=== PATIENT | female | born 1980 | race Caucasian/White ===

== ENCOUNTER 2016-12-30 09:32 | Emergency (ER) | payer OTHER ==
[2016-12-30 09:47] VITALS: BP 121/70; PULSE 66; TEMP 98.1; BMI 31.6
[2016-12-30] MEDS ORDERED: ACETAMINOPHEN 500 MG TABLET (FP) ONE (10:11)
[2016-12-30] MEDS ORDERED: ACETAMINOPHEN 500 MG TABLET (FP) PO ONE (10:13)
--- NOTE | 2016-12-30 10:20 | PDOC ---
History of Present Illness - General Chief Complaint: Pain Stated Complaint: RT FOOT PAIN Time Seen by Provider: 12/30/16 10:04 History Source: Patient Exam Limitations: No Limitations - History of Present Illness Initial Comments: 12/30/16 10:18 Chief complaint: Right middle toe pain after hitting it in a table last night History of present illness: Patient is a 36-year-old female with no significant medical history here today complaining of pain in right middle toe with slight swelling of the toe noted after hitting it on a table last night. Patient reports the pain is sharp when she applies pressure to her right toe and is an 8 out of 10. Patient denies any numbness of toe or any other injuries. Patient has not taken anything for pain. 12/30/16 10:20 Occurred: reports: yesterday Severity: Yes: severe (when applying pressure to rt. foot) Lower Extremity Pain Location: right: 3rd toe (middle aspect ) Method of Injury: Yes: direct blow (to a table ) Modifying Factors: improves with: immobilization Lower Ext. Injury Location - Specific Injury Location Foot: right foot normal range of motion, right foot bone tenderness (rt. middle toe ), right foot limited range of motion (rt. middle toe), right foot swelling (minimal swelling rt. middle toe) Extremity Pain Location - Extremity Pain Location Extremity Pain Locations: right: 3rd toe (middle aspect ) Past History - Past Medical History Allergies/Adverse Reactions: Allergies Allergy/AdvReac Type Severity Reaction Status Date / Time No Known Allergies Allergy Verified 12/30/16 09:49 Home Medications: Ambulatory Orders No Home Medications 0 dose .ROUTE UTDICT 04/17/12 Other medical history: Pt denies - Psycho/Social/Smoking Cessation Hx Suicidal Ideation: No Smoking Status: Yes Smoking History: Never smoked Have you smoked in the past 12 months: No Number of Cigarettes Smoked Daily: 3 Information on smoking cessation initiated: No Hx Alcohol Use: No Drug/Substance Use Hx: No Substance Use Type: None Hx Substance Use Treatment: No Review of Systems - Review of Systems Able to Perform ROS?: Yes Constitutional: No: Symptoms Reported HEENTM: No: Symptoms Reported Respiratory: No: Symptoms reported Cardiac (ROS): No: Symptoms Reported ABD/GI: No: Symptoms Reported : No: Symptoms Reported Musculoskeletal: Yes: Joint Pain (rt. middle toe), Joint Swelling (rt. middle toe, mid aspect ) Integumentary: No: Symptoms Reported Neurological: No: Symptoms reported *Physical Exam - Vital Signs Last Vital Signs Temp Pulse Resp BP Pulse Ox 98.1 F 66 14 121/70 96 12/30/16 09:42 12/30/16 09:42 12/30/16 09:42 12/30/16 09:42 12/30/16 09:42 - Physical Exam General Appearance: Yes: Appropriately Dressed Respiratory/Chest: positive: Lungs Clear, Normal Breath Sounds. negative: Chest Tender, Respiratory Distress Cardiovascular: positive: Regular Rhythm, Regular Rate, S1, S2 Vascular Pulses: Dorsalis-Pedis (R): 4+ Extremity: positive: Normal Capillary Refill, Tender (rt. middle toe), Swelling (minimal rt. middle toe). negative: Normal Range of Motion (slightly decreased ROM rt. middle toe) Integumentary: positive: Normal Color, Swelling (minimal rt. middle toe) Neurologic: positive: Normal Response, Respond to painful stimul (rt. foot and all toes ), Responsive. negative: Numbness, Sensory Deficit (rt. foot/toes ) Procedures - Consent Consent obtained: From Patient - Splinting Progress: 12/30/16 10:57 Tapped right second and third toe together and post op shoe given to patient ED Treatment Course - RADIOLOGY Radiology Studies Ordered: Category Date Time Status FOOT-RIGHT [RAD] Stat Radiology 12/30/16 10:13 Ordered Medical Decision Making - Medical Decision Making 12/30/16 10:20 Patient is a 36-year-old female with no significant medical history here today complaining of pain in right middle toe with slight swelling of the toe noted after hitting it on a table last night. Patient reports the pain is sharp when she applies pressure to her right toe and is an 8 out of 10. Patient denies any numbness of toe or any other injuries. Patient has not taken anything for pain. R/O fracture rt. 3rd toe PLAN: xray right foot rt. proximal 3rd toe fracture buddie taped 2nd & 3rd toe, post op shoe acetaminophen 1000 mg po now follow up with orthopedist 12/30/16 10:53 12/30/16 10:57 *DC/Admit/Observation/Transfer Diagnosis at time of Disposition: Fracture of toe of right foot Qualifiers: Encounter type: initial encounter Toe: lesser toe Fracture type: closed Phalanx : proximal Fracture alignment: displaced Qualified Code(s): S92.511A - Displaced fracture of proximal phalanx of right lesser toe(s), initial encounter for closed fracture - Discharge Dispostion Disposition: HOME Condition at time of disposition: Stable - Referrals Referrals: Jesus Santos [Primary Care Provider] - Shiva Medina MD [Staff Physician] - - Patient Instructions Additional Instructions: Continue to tape right 2nd and 3rd toe together daily use hard sole shoe Take acetaminophen as needed as directed by improvement coordinator for pain Avoid Any strenuous activities Follow up with orthopedist as soon as possible
== END 2016-12-30 11:19 | disposition home or self-care (01) ==
LOC: JERFT 09:32
DX: S92.511A Displaced fracture of proximal phalanx of right lesser toe(s), initial encounter for closed fracture (principal); W22.03XA Walked into furniture, initial encounter; Y93.01 Activity, walking, marching and hiking; Y92.89 Other specified places as the place of occurrence of the external cause; Y99.8 Other external cause status
CPT/HCPCS: 73630-TC-RT; 84703; 99281-25

== ENCOUNTER 2017-02-28 11:13 | Emergency (ER) | payer OTHER ==
[2017-02-28 11:27] VITALS: BMI 32.4
--- NOTE | 2017-02-28 12:42 | PDOC ---
History of Present Illness - General History Source: Patient Exam Limitations: No Limitations - History of Present Illness Initial Comments: 02/28/17 13:17 The patient is a 36 year old female, who is currently 6 week with no significant past medical history who presents to the emergency department with right sided abdominal pain, and nausea for about 5 days. The patient reports her pain is episodic in nature often ranging from dull to sharp. She reports her pain is a 8/10 in pain intensity at its worst. She notes her pain has been gradually worsening and becoming more frequent since its original episodic. She denies seeing an OBGYN since discovering she was . She denies recent fevers, chills, headache or dizziness. She denies recent vomiting, diarrhea or constipation. She denies recent dysuria, frequency, urgency or hematuria. She denies recent chest pain or shortness of breath. LMP was December,. Allergies: NKA Past surgical history: None reported. Social history: Nonsmoker. Denies EtOH use and recreational drug use. Primary Care Physician: <Chris Skaggs - Last Filed: 02/28/17 13:17> <Alex Pritchett - Last Filed: 02/28/17 16:30> - General Chief Complaint: Pain, Acute Stated Complaint: RT SIDE PAIN, 6 WKS Time Seen by Provider: 02/28/17 11:38 Past History <Chris Skaggs - Last Filed: 02/28/17 13:17> - Past Medical History Other medical history: denies - Immunization History Immunization Up to Date: Yes - Psycho/Social/Smoking Cessation Hx Suicidal Ideation: No Smoking Status: Yes Smoking History: Never smoked Have you smoked in the past 12 months: No Number of Cigarettes Smoked Daily: 3 Information on smoking cessation initiated: No Hx Alcohol Use: No Drug/Substance Use Hx: No Substance Use Type: None Hx Substance Use Treatment: No <Alex Pritchett - Last Filed: 02/28/17 16:30> - Past Medical History Allergies/Adverse Reactions: Allergies Allergy/AdvReac Type Severity Reaction Status Date / Time No Known Allergies Allergy Verified 02/28/17 11:24 Home Medications: Ambulatory Orders No Home Medications 0 dose .ROUTE UTDICT 04/17/12 Review of Systems - Review of Systems Constitutional: No: Chills, Fever Respiratory: No: Cough, Shortness of Breath Cardiac (ROS): No: Chest Pain ABD/GI: Yes: Nausea. No: Constipated, Diarrhea, Vomiting : No: Burning, Flank Pain, Hematuria, Incontinence All Other Systems: Reviewed and Negative <Alex Pritchett - Last Filed: 02/28/17 16:30> *Physical Exam - Vital Signs Last Vital Signs Temp Pulse Resp BP Pulse Ox 98.4 F 71 17 141/95 98 02/28/17 11:24 02/28/17 11:24 02/28/17 11:24 02/28/17 11:24 02/28/17 11:24 - Physical Exam Comments: 02/28/17 13:17 GENERAL: The patient is awake, alert, and fully oriented, in no acute distress. HEAD: Normal with no signs of trauma. EYES: Pupils equal, round and reactive to light, extraocular movements intact, sclera anicteric, conjunctiva clear with no pallor. ENT: Ears normal, nares patent, oropharynx clear without exudates. Moist mucous membranes. NECK: Normal range of motion, supple without lymphadenopathy, JVD, or masses. LUNGS: Breath sounds equal, clear to auscultation bilaterally. No wheeze/ crackles. HEART: Regular rate and rhythm, normal S1 and S2 without murmur or rub. ABDOMEN: Right pelvic discomfort. Soft/nondistended. BS wnl. No guarding or rebound. No palpable masses. No hepatosplenomegaly. EXTREMITIES: Normal range of motion, no edema. No clubbing or cyanosis. No cords , erythema, or tenderness. NEUROLOGICAL: Cranial nerves II through XII grossly intact. Normal speech, normal gait. PSYCH: Normal mood, normal affect. SKIN: Warm, Dry, normal turgor, no rashes or lesions noted. <Chris Skaggs - Last Filed: 02/28/17 13:17> - Vital Signs Last Vital Signs Temp Pulse Resp BP Pulse Ox 98.4 F 71 17 141/95 98 02/28/17 11:24 02/28/17 11:24 02/28/17 11:24 02/28/17 11:24 02/28/17 11:24 <Alex Pritchett - Last Filed: 02/28/17 16:30> ED Treatment Course - LABORATORY CBC & Chemistry Diagram: 02/28/17 12:07 02/28/17 12:07 - ADDITIONAL ORDERS Additional order review: 02/28/17 12:07 RBC 4.56 MCV 87.5 MCHC 33.9 RDW 13.7 MPV 8.2 Neutrophils % 73.9 Lymphocytes % 17.3 Monocytes % 7.5 Eosinophils % 0.8 Basophils % 0.5 <Chris Skaggs - Last Filed: 02/28/17 13:17> - LABORATORY CBC & Chemistry Diagram: 02/28/17 12:07 02/28/17 12:07 <Alex Pritchett - Last Filed: 02/28/17 16:30> Medical Decision Making - Medical Decision Making 02/28/17 13:24 A portion of this note was documented by scribe services under my direction. I have reviewed the details of the note, within reason, and agree with the documentation with the following case summary and management plan written by me. Healthy 36-year-old female LMP 01/17 presents with intermittent right lower abdominal/pelvic discomfort for 5 days, increasing in frequency and lasting only seconds at a time, worse severity as 8 out of 10, no worsening or alleviating factors, no associated GI or complaints, no discharge or bleeding. Has not yet had OB care established. Brought her daughter to fast track today and while here decided to get checked out. Vital signs stable. Well-appearing. abd soft/nd. discomfort in R pelvis, no guarding/rebound. no cvat. no active vaginal bleeding. 36y/o F with R pelvic discomfort, known + test at home. VSS, no peritoneal findings. r/o ectopic, r/o cyst, ? uti, less likely GI. labs, ua TVUS and RUQ sono declines pain meds at this time reassess 02/28/17 16:27 labs wnl, ua clear. GB and u/s wnl with normal IUP, 3x3cm R ovarian cyst otherwise uncomplicated with normal flow. Pt comfortable, seated in chair, pain resolved, exam unchanged and benign. Agrees with d/c plan, will establish ob care, understands return criteria. <Alex Pritchett - Last Filed: 02/28/17 16:30> *DC/Admit/Observation/Transfer - Attestations Scribe Attestion: 02/28/17 13:17 Documentation prepared by Chris Skaggs, acting as medical recruiter for Alex Pritchett MD. <Chris Skaggs - Last Filed: 02/28/17 13:17> <Alex Pritchett - Last Filed: 02/28/17 16:30> Diagnosis at time of Disposition: Pelvic pain in female, Cyst of ovary Qualifiers: Weeks of gestation: less than 8 weeks Qualified Code(s): Z3A.01 - Less than 8 weeks gestation of - Discharge Dispostion Disposition: HOME Condition at time of disposition: Improved - Referrals Referrals: Jesus Santos [Primary Care Provider] - - Patient Instructions Printed Discharge Instructions: DI for Ovarian Cyst, Nausea of ( Alternative Therapy) Additional Instructions: Activity as tolerated. Stay hydrated. Blood tests, a urine test, and an ultrasound showed no acute abnormalities. There is a normal first trimester in the uterus, there is a small 3 cm cyst on the right ovary which could be the cause of your pain. Tylenol 1000 mg every 8 hours as needed for pain. You should follow up with your [facility] as soon as possible regarding today's emergency department visit. Return to the emergency department for any new or concerning symptoms, particularly persistent or worsening pain, fevers or chills, vaginal discharge or bleeding.
[2017-02-28 13:06] LABS: BASOPHIL 0.5 % (0-2.0); EOSINOPHIL 0.8 % (0-4.5); MCH 29.7 pg (25.7-33.7); MCHC 33.9 g/dl (32.0-36.0); MEAN CELL VOLUME 87.5 fl (80-96); MEAN PLT VOLUME 8.2 fl (7.5-11.1); NEUTROPHILS 73.9 % (42.8-82.8); PLATELET COUNT 248 K/MM3 (134-434); RDW 13.7 % (11.6-15.6)
[2017-02-28 13:31] LABS: ALBUMIN 3.8 g/dl (3.4-5.0); ANION GAP 8 (8-16); CALCIUM 9.1 mg/dL (8.5-10.1); CO2 25 mmol/L (21-32); CREATININE 0.6 mg/dL (0.55-1.02); GLUCOSE,RANDOM 86 mg/dL (74-106); SGOT/AST 15 U/L (15-37); SGPT/ALT 26 U/L (12-78)
[2017-02-28 13:33] LABS: ALK PHOS 63 U/L (45-117); BILIRUBIN,TOTAL 0.3 mg/dL (0.2-1.0); TOT PROT 7.4 g/dl (6.4-8.2)
[2017-02-28 14:04] LABS: URINE APPEARANCE SLCLOUDY; URINE BILIRUBIN NEGATIVE (NEGATIVE); URINE BLOOD NEGATIVE (NEGATIVE); URINE COLOR YELLOW; URINE GLUCOSE (UA) NEGATIVE (NEGATIVE); URINE KETONE NEGATIVE (NEGATIVE); URINE LEUK ESTERASE NEGATIVE (NEGATIVE); URINE NITRITE NEGATIVE (NEGATIVE); URINE PROTEIN NEGATIVE (NEGATIVE); URINE UROBILINOGEN NEGATIVE mg/dL (0.2-1.0)
[2017-02-28 15:17] VITALS: BP 137/71; PULSE 83; TEMP 99.1
== END 2017-02-28 16:57 | disposition home or self-care (01) ==
LOC: JER 11:13
DX: O34.81 Maternal care for other abnormalities of pelvic organs, first trimester (principal); N83.291 Other ovarian cyst, right side; Z3A.01 Less than 8 weeks gestation of pregnancy
CPT/HCPCS: 36415; 76705-TC; 76817-TC; 80053; 81003; 84702; 85025; 86850; 86900; 86901; 99284-25

== ENCOUNTER 2017-07-15 06:35 | Inpatient (IN) | payer OTHER ==
[2017-07-15 08:06] VITALS: TEMP 98.2
[2017-07-15 09:06] LABS: MCH 30.3 pg (25.7-33.7); MCHC 33.3 g/dl (32.0-36.0); MEAN PLT VOLUME 8.6 fl (7.5-11.1); PLATELET COUNT 232 K/MM3 (134-434); WHITE BLOOD COUNT 12.6 K/mm3 (4.0-10.0)
[2017-07-15 09:30] LABS: ALBUMIN 2.5 g/dl (3.4-5.0); ANION GAP 8 (8-16); CALCIUM 8.2 mg/dL (8.5-10.1); CO2 24 mmol/L (21-32); GLUCOSE,RANDOM 137 mg/dL (74-106)
[2017-07-15 09:33] LABS: ALK PHOS 85 U/L (45-117); BILIRUBIN,TOTAL 0.2 mg/dL (0.2-1.0); CREATININE 0.6 mg/dL (0.55-1.02); SGOT/AST 24 U/L (15-37); SGPT/ALT 55 U/L (12-78); TOT PROT 6.2 g/dl (6.4-8.2)
[2017-07-15 09:37] LABS: URINE MARIJUANA THC NEGATIVE ng/ml (CUTOFF=50)
[2017-07-15 09:38] LABS: URINE APPEARANCE CLEAR; URINE BILIRUBIN NEGATIVE (NEGATIVE); URINE BLOOD NEGATIVE (NEGATIVE); URINE COLOR LTYELLOW; URINE GLUCOSE (UA) NEGATIVE (NEGATIVE); URINE KETONE NEGATIVE (NEGATIVE); URINE LEUK ESTERASE NEGATIVE (NEGATIVE); URINE NITRITE NEGATIVE (NEGATIVE); URINE PROTEIN NEGATIVE (NEGATIVE); URINE UROBILINOGEN NEGATIVE mg/dL (0.2-1.0)
[2017-07-15] MEDS ORDERED: CITRIC ACID/SODIUM CITRATE 30 ML UNIT-DOSE CUP PO ONE (10:30)
[2017-07-15] MEDS ORDERED: DEXTROSE 5%-LACTATED RINGERS 1,000 ML IV SCH (10:30)
[2017-07-15 10:38] LABS: URINE LEUK ESTERASE Negative (NEGATIVE)
--- NOTE | 2017-07-15 14:56 | HP ---
Past Medical History - Primary Care Physician PCP:: Chepe Alford - Admission Chief Complaint: left side low abdominal pain, 27 weeks History of Present Illness: 37 yo f g 4 p2012 27 weeks, c/o left side abdominal pain since 3 am today, pain scale 10/10, had one 2 episode of vomiting , no diarrhea , had normal BM last night, no dysuria, no hematuria, no vaginal bleeding, no fever , fhr cat 1, no contraction History Source: Patient Limitations to Obtaining History: No Limitations - Past Medical History ...: 4 ...Para: 2 ...Term: 2 ...: 0 ...Spon : 0 ...Induced : 1 ... Weeks Gestation by Dates: 27.4 ...EDC by Sono: 10/15/17 Additional OB History: 2 , normal , term delivery - Past Surgical History Hx Myomectomy: No Hx Transabdominal Cerclage: No - Smoking History Smoking history: Never smoked Have you smoked in the past 12 months: No Aproximately how many cigarettes per day: 3 - Alcohol/Substance Use Hx Alcohol Use: No - Social History History of Recent Travel: No Home Medications - Allergies Allergies/Adverse Reactions: Allergies Allergy/AdvReac Type Severity Reaction Status Date / Time No Known Allergies Allergy Verified 02/28/17 11:24 - Home Medications Home Medications: Ambulatory Orders No Home Medications 0 dose .ROUTE UTDICT 04/17/12 Review of Systems - Review of Systems Constitutional: reports: No Symptoms Eyes: reports: No Symptoms HENT: reports: No Symptoms Neck: reports: No Symptoms Cardiovascular: reports: No Symptoms Respiratory: reports: No Symptoms Gastrointestinal: reports: Abdominal Pain Genitourinary: reports: No Symptoms Breasts: reports: No Symptoms Reported Musculoskeletal: reports: No Symptoms Integumentary: reports: No Symptoms Neurological: reports: No Symptoms Endocrine: reports: No Symptoms Hematology/Lymphatic: reports: No Symptoms Psychiatric: reports: No Symptoms Physical Exam - Maternity Constitutional: Yes: Well Nourished, No Distress, Calm Eyes: Yes: WNL, Conjunctiva Clear, EOM Intact HENT: Yes: WNL, Atraumatic, Normocephalic Neck: Yes: WNL, Supple, Trachea Midline Cardiovascular: Yes: WNL, Regular Rate and Rhythm Breast(s): Yes: WNL - Abdominal Exam/OB Fundal Height: 28 (soft , non tender , no contraction felt) Number of Fetuses: Single Contractions: No Intensity: Unaware Monitor Mode: External Heart Rate Location: RLQ Accelerations: Uniform Decelerations: None - Physical Exam Musculoskeletal: Yes: WNL Extremities: Yes: WNL Edema: Yes Edema: LLE: Trace, RLE: Trace Deep Tendon Reflex Grade: Normal +2 Psychiatric: Yes: WNL Hemorrhage Risk Assessment - Risk Factors Medium Risk Factors: Yes: None High Risk Factors: Yes: None Risk Score: 1 Risk Level: Medium Risk Imaging - Results Ultrasound: Report Reviewed Problem List - Problems (1) with 27 completed weeks gestation Code(s): Z3A.27 - 27 WEEKS GESTATION OF (2) Left sided abdominal pain Code(s): R10.9 - UNSPECIFIED ABDOMINAL PAIN Assessment/Plan admit, ob sono, renal sono, cbc, cmp, u/a, revaluate
--- NOTE | 2017-07-15 15:05 | PN ---
Progress Note (short form) - Note Progress Note: still c/o of left side abdominal pain, severe scale 8/10 . crying with pain, all workup was normal, advised be transfer to [facility] , report given Problem List - Problems (1) with 27 completed weeks gestation Code(s): Z3A.27 - 27 WEEKS GESTATION OF (2) Left sided abdominal pain Code(s): R10.9 - UNSPECIFIED ABDOMINAL PAIN
--- NOTE | 2017-07-15 15:10 | DS ---
Physical Exam-[employer]LL [employer]ER Constitutional: Yes: Well Nourished, No Distress, Calm Eyes: Yes: WNL, Conjunctiva Clear, EOM Intact HENT: Yes: WNL, Atraumatic, Normocephalic Neck: Yes: WNL, Supple, Trachea Midline Cardiovascular: Yes: WNL, Regular Rate and Rhythm Respiratory: Yes: WNL, Regular, CTA Bilaterally Gastrointestinal: Yes: Normal Bowel Sounds, Soft, Tenderness (left abdominal wall) ...Rectal Exam: Yes: Deferred Renal/: Yes: WNL External Genitalia: Yes: Normal Vaginal Exam: Yes: Normal Cervix: Yes: Normal Uterus: Yes: Normal (28 eeks, non tender) Breast(s): Yes: WNL Musculoskeletal: Yes: WNL Extremities: Yes: WNL Integumentary: Yes: WNL Neurological: Yes: WNL, Alert, Oriented ...Motor Strength: WNL Psychiatric: Yes: WNL, Alert, Oriented Discharge Summary Reason For Visit: ABDOMINAL PAIN AT 27 WEEKS Current Active Problems Left sided abdominal pain (Acute) with 27 completed weeks gestation (Acute) Hospital Course: transferred to [facility] - Instructions Disposition: TRANSFER ACUTE CARE/OTHER HOSP - Home Medications Comprehensive Discharge Medication List: Ambulatory Orders No Home Medications 0 dose .ROUTE UTDICT 04/17/12
[2017-07-15 15:19] VITALS: BMI 31.2
[2017-07-15 15:21] VITALS: BP 127/72; PULSE 90
== END 2017-07-15 17:10 | disposition short-term general hospital (02) | DRG 566 ==
LOC: JDEL 06:35 → JLDR 14:30
PROVIDERS: ADMIT Obstetrics & Gynecology; ATTEND Obstetrics & Gynecology
DX: O26.892 Other specified pregnancy related conditions, second trimester (principal); Z3A.27 27 weeks gestation of pregnancy; R10.32 Left lower quadrant pain
CPT/HCPCS: 36415; 76775-TC; 80053; 80307; 81003; 85027; 87086

== ENCOUNTER 2017-09-13 14:28 | Emergency (ER) | payer OTHER ==
[2017-09-13 14:34] VITALS: BP 134/67; PULSE 101; TEMP 98.6; BMI 37.4
--- NOTE | 2017-09-13 14:34 | PDOC ---
Rapid Medical Evaluation Medical Evaluation: Allergies Allergy/AdvReac Type Severity Reaction Status Date / Time No Known Allergies Allergy Verified 09/13/17 14:30 09/13/17 14:32 I have performed a brief in-person evaluation of this patient. The patient presents with a chief complaint of: hematuria, b/l back pain, cleared by L&D, UA +RBC 749, labs unremarkable Pertinent physical exam findings: well appearing I have ordered the following: nothing The patient will proceed to the ED for further evaluation. Discharge Disposition - Diagnosis Hematuria - Referrals Referrals: Jesus Santos [Primary Care Provider] - - Patient Instructions - Post Discharge Activity
--- NOTE | 2017-09-13 17:01 | PDOC ---
History of Present Illness - General Chief Complaint: Urinary Problem Stated Complaint: BLOOD IN URINE 35WK Time Seen by Provider: 09/13/17 15:51 History Source: Patient Exam Limitations: No Limitations - History of Present Illness Initial Comments: 09/13/17 17:21 Patient is a 37-year-old female currently 35 weeks sent from OB for urology consult. Patient presents to emergency department this a.m. with hematuria was sent to [facility] for evaluation was cleared as per standpoint however patient does have hematuria. +3 blood in urine. Also WBC count of 7. Patient was sent to emergency department for urology consultation spoke to Dr. Wills who states he did not send patient to emergency department he told her to follow up as outpatient however patient was concerned because of hematuria and wanted further testing performed. Dr. Mario requested for ultrasound to be performed and to start patient on Keflex. I spoke to Dr. Maddie Machado follow patient as an outpatient. Patient denies any pain. Blood was noted in the toilet, none on the paper. No vaginal discharge or vaginal bleeding. Timing/Duration: 4-6 hours Severity: mild Associated Symptoms: reports: denies symptoms Past History - Past Medical History Allergies/Adverse Reactions: Allergies Allergy/AdvReac Type Severity Reaction Status Date / Time No Known Allergies Allergy Verified 09/13/17 14:30 Home Medications: Ambulatory Orders Cephalexin Monohydrate [Keflex -] 500 mg PO Q8H #21 capsule 09/13/17 2/Iron/Folic Acid/Om3 [Complete Arnoldo Dha] 1 each PO DAILY 09/13/17 Asthma: No Cancer: No Cardiac Disorders: No COPD: No Diabetes: No HTN: No Seizures: No Thyroid Disease: No - Immunization History Immunization Up to Date: Yes - Suicide/Smoking/Psychosocial Hx Smoking Status: Yes Smoking History: Never smoked Have you smoked in the past 12 months: No Number of Cigarettes Smoked Daily: 3 Information on smoking cessation initiated: No Hx Alcohol Use: No Drug/Substance Use Hx: No Substance Use Type: None Hx Substance Use Treatment: No Review of Systems - Review of Systems Constitutional: No: Symptoms Reported HEENTM: No: Symptoms Reported Respiratory: No: Symptoms reported Cardiac (ROS): No: Symptoms Reported ABD/GI: No: Symptoms Reported : Yes: Hematuria. No: Dysuria, Discharge, Frequency, Flank Pain, Incontinence , Urgency Musculoskeletal: No: Symptoms Reported Integumentary: No: Symptoms Reported Neurological: No: Symptoms reported Hematologic/Lymphatic: No: Symptoms Reported All Other Systems: Reviewed and Negative *Physical Exam - Vital Signs Last Vital Signs Temp Pulse Resp BP Pulse Ox 98.6 F 101 H 18 134/67 100 09/13/17 14:31 09/13/17 14:31 09/13/17 14:31 09/13/17 14:31 09/13/17 14:31 - Physical Exam General Appearance: Yes: Appropriately Dressed. No: Apparent Distress Respiratory/Chest: positive: Lungs Clear, Normal Breath Sounds. negative: Respiratory Distress, Accessory Muscle Use Cardiovascular: positive: Regular Rhythm, Regular Rate Gastrointestinal/Abdominal: positive: Normal Bowel Sounds, Other (abdomen is gravid). negative: Tenderness Lymphatic: negative: Adenopathy Integumentary: positive: Normal Color, Dry. negative: Rash Neurologic: positive: Alert, Normal Mood/Affect, Normal Response, Motor Strength 5/5 ED Treatment Course - RADIOLOGY Radiology Studies Ordered: Category Date Time Status KIDNEY / RENAL US [US] Stat Ultrasound 09/13/17 16:13 Completed Medical Decision Making - Medical Decision Making 09/13/17 17:24 A/P: Patient here for evaluation of hematuria, will follow-up with patient, ultrasound was performed with no hydronephrosis or shadowing, intrarenal calculus identified with either kidney CT is more sensitive however patient is currently . We'll discharge patient on Keflex 500 mg 3 times a day as per , and patient will call to follow up as outpatient. *DC/Admit/Observation/Transfer Diagnosis at time of Disposition: Hematuria Qualifiers: Hematuria type: unspecified type Qualified Code(s): R31.9 - Hematuria, unspecified - Discharge Dispostion Disposition: HOME Condition at time of disposition: Good Admit: No - Prescriptions Prescriptions: Cephalexin Monohydrate [Keflex -] 500 mg PO Q8H #21 capsule - Referrals Referrals: Chepe Alford MD [Staff Physician] - Thierno Marquez MD [Staff Physician] - - Patient Instructions Additional Instructions: Recommend follow-up with Dr. Mcneill and Dr. Marquez. Antibiotics as ordered. - Post Discharge Activity
== END 2017-09-13 17:26 | disposition home or self-care (01) ==
LOC: JERFT 14:28
DX: O26.893 Other specified pregnancy related conditions, third trimester (principal); R31.9 Hematuria, unspecified; Z3A.35 35 weeks gestation of pregnancy
CPT/HCPCS: 76775-TC; 99281-25

== ENCOUNTER 2017-10-13 14:03 | Emergency (ER) | payer OTHER ==
[2017-10-13 14:11] VITALS: BMI 23.3
[2017-10-13] MEDS ORDERED: ALBUTEROL SO4 2.5/IPRATROPIUM 0.5 INH SOL 3 ML VIAL.NEB. NEB ONE ×2 (14:40)
--- NOTE | 2017-10-13 14:40 | PDOC ---
History of Present Illness - General Chief Complaint: Cold Symptoms Stated Complaint: 40WKS,COUGH Time Seen by Provider: 10/13/17 14:25 History Source: Patient Exam Limitations: No Limitations - History of Present Illness Initial Comments: 10/13/17 14:43 She came for evaluation of persistent and worsening cough. States has copious amounts of mucus that is clear to thick white. States has excessive post nasal drainage that is exacerbating her cough. Has used Tylenol and teas but has had not much resolved. Denies fever, denies purulent drainage from nose or cough. Timing/Duration: reports: just prior to arrival, getting worse Severity: reports: mild, moderate Associated Symptoms: reports: cough, nasal congestion, nasal drainage, sore throat. denies: fever/chills, headache Past History - Travel Traveled outside of the country in the last 30 days: No Close contact w/someone who was outside of country & ill: No - Past Medical History Allergies/Adverse Reactions: Allergies Allergy/AdvReac Type Severity Reaction Status Date / Time No Known Allergies Allergy Verified 10/13/17 14:12 Home Medications: Ambulatory Orders Albuterol Sulfate Inhaler - [Ventolin HFA Inhaler -] 1 - 2 inh PO Q4H #1 inhaler 10/13/17 Asthma: No Cancer: No Cardiac Disorders: No COPD: No Diabetes: No HTN: No Seizures: No Thyroid Disease: No - Immunization History Immunization Up to Date: Yes - Suicide/Smoking/Psychosocial Hx Smoking Status: Yes Smoking History: Never smoked Have you smoked in the past 12 months: No Number of Cigarettes Smoked Daily: 3 Information on smoking cessation initiated: No Hx Alcohol Use: No Drug/Substance Use Hx: No Substance Use Type: None Hx Substance Use Treatment: No Review of Systems - Review of Systems Able to Perform ROS?: Yes Is the patient limited Libyan proficient: Yes Constitutional: Yes: Symptoms Reported, See HPI, Chills, Malaise. No: Fever Respiratory: Yes: Symptoms reported, See HPI, Cough. No: Wheezing (moist ) Musculoskeletal: No: Symptoms Reported *Physical Exam - Vital Signs Last Vital Signs Temp Pulse Resp BP Pulse Ox 98.1 F 103 H 19 153/82 97 10/13/17 14:09 10/13/17 14:09 10/13/17 14:09 10/13/17 14:09 10/13/17 14:09 - Physical Exam General Appearance: Yes: Nourished, Appropriately Dressed HEENT: positive: TMs Normal, Pharyngeal Erythema, Tonsillar Erythema, Nasal Congestion (a), Rhinorrhea. negative: Pharynx Normal, Tonsillar Exudate Neck: positive: Supple. negative: Tender, Lymphadenopathy (R), Lymphadenopathy (L) Respiratory/Chest: positive: Lungs Clear. 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 Much improved after saline nebulizer with some DuoNeb. Lungs are clear and patient reports feels much better. We will discharge with Proventil inhaler prescription and encouraged patient to review with Dr. Mcfadden to approve. Is from ER and send to labor and delivery for monitoring *DC/Admit/Observation/Transfer Diagnosis at time of Disposition: Upper respiratory infection, viral - Discharge Dispostion Disposition: HOME Condition at time of disposition: Stable Admit: No - Prescriptions Prescriptions: Albuterol Sulfate Inhaler - [Ventolin HFA Inhaler -] 1 - 2 inh PO Q4H #1 inhaler - Referrals Referrals: Jesus Santos [Primary Care Provider] - - Patient Instructions Printed Discharge Instructions: DI for Viral Upper Respiratory Infection -- Adult Additional Instructions: Rest, drink lots of fluids: Teas, water, soups, Pedialyte Saltwater gargles Steamy showers/seem to face break up mucus Avoid contact with others until fevers and cough resolved Lots of handwashing and good hygiene Continue [id number] medications for symptomatic relief Tylenol or Motrin for fever and pain May use saline spray to keep nasal passages moist and sinuses clear Followup with private physician in one to 2 days as needed Return to emergency department for worsened symptoms, fevers, dehydration - Post Discharge Activity
[2017-10-13 17:09] VITALS: BP 130/74; PULSE 92; TEMP 98.3
--- NOTE | 2017-10-19 01:13 | EKG ---
Test Reason : Blood Pressure : / mmHG Vent. Rate : 090 BPM Atrial Rate : 090 BPM P-R Int : 126 ms QRS Dur : 088 ms QT Int : 368 ms P-R-T Axes : 058 051 047 degrees QTc Int : 450 ms NORMAL SINUS RHYTHM POSSIBLE LEFT ATRIAL ENLARGEMENT BORDERLINE ECG NO PREVIOUS ECGS AVAILABLE Confirmed by YANETH MERCADO MD ([id number]) on 10/19/2017 1:13:02 AM Referred By: Confirmed By:YANETH MERCADO MD
== END 2017-10-13 17:37 | disposition home or self-care (01) ==
LOC: JER 14:03 → JERFT 14:03 → JER 17:37
PROC: 3E0F7GC Introduction of Other Therapeutic Substance into Respiratory Tract, Via Natural or Artificial Opening (ICD-10-PCS; principal; 2017-10-13)
DX: O99.89 Other specified diseases and conditions complicating pregnancy, childbirth and the puerperium (principal); O99.513 Diseases of the respiratory system complicating pregnancy, third trimester; J06.9 Acute upper respiratory infection, unspecified; Z3A.39 39 weeks gestation of pregnancy
CPT/HCPCS: 87070; 87430; 93005; 93010; 99281-25

== ENCOUNTER 2017-10-18 15:30 | Inpatient (IN) | payer OTHER ==
[2017-10-18 16:50] VITALS: BMI 40.2
[2017-10-18] MEDS ORDERED: TUBERCULIN PPD 5 TU/0.1ML SYRINGE (IN PATIENT USE ONLY) ID ONE (17:15)
[2017-10-18] MEDS ORDERED: DEXTROSE 5%-LACTATED RINGERS 1,000 ML IV SCH ×3 (17:15→17:36)
[2017-10-18] MEDS ORDERED: DINOPROSTONE 10 MG VAGINAL SUPPOSITORY VG ONE (17:30)
[2017-10-18] MEDS ORDERED: SODIUM PHOSPHATE/NA BIPHOS 133 ML ENEMA PR ONE (17:33)
--- NOTE | 2017-10-18 17:53 | HP ---
Past Medical History - Primary Care Physician PCP:: Leti Solo - Admission Chief Complaint: 37 yrs , 40.3 weeks iup, admitted for induction of labor . BPP on 10/18/17 , prelimnary report SLICHRIS, BPP8/8, ANNA 14.0 , EFW 9'9" . pt insists on induction, declines to wait for spontaeous onset of LP History of Present Illness: PNC at [address] [place] [address] . wt gain 66 lbs . 03/07/17 panel : O Neg, , Hbsag neg, Rubella pos, Rpr nr, Hiv nr, Sickle neg , 04/07/18 AFP neg 06/21/18 1 hr GTT 176, , Rpr nr 07/07/18 3 hrGTT;88, 157, 169, 132 ( one bgm elevated) Pt seen by [facility] Genetic counselling done for AMA. NT screen, Modified Sequential materna T-21 neg , echo neg . 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 Weeks Gestation by Dates: 39.1 ...EDC by Dates: 10/24/17 ...EDC by Sono: 10/15/17 (40.3) Heme/Onc: Yes: Anemia Infectious Disease: No: STD's Psych: Yes: Anxiety. No: Addictions, Depression Dermatology: Yes: Eczema (rx hydrcortizone cream, use prn) - Past Surgical History Past Surgical History: Yes: None Hx Myomectomy: No Hx Transabdominal Cerclage: No - Smoking History Smoking history: Former smoker Have you smoked in the past 12 months: No Aproximately how many cigarettes per day: 3 (last smoked 6 years ago) - Alcohol/Substance Use Hx Alcohol Use: No History of Substance Use: reports: None - Social History History of Recent Travel: No Home Medications - Allergies Allergies/Adverse Reactions: Allergies Allergy/AdvReac Type Severity Reaction Status Date / Time No Known Allergies Allergy Verified 10/18/17 18:12 - Home Medications Home Medications: Ambulatory Orders Hydrocortisone 0.5% Cream [Hytone 0.5% Cream -] 1 applic TP PRN PRN 10/18/17 Vitamins (Sjr) - 1 tab PO DAILY 10/18/17 Physical Exam - Maternity Vital Signs: Vital Signs Temperature 98.9 F 10/18/17 15:30 Pulse Rate 104 H 10/18/17 17:00 Respiratory Rate 20 10/18/17 17:00 Blood Pressure 124/71 10/18/17 17:00 O2 Sat by Pulse Oximetry (%) Selected Entries 10/18/17 15:30 Weight 242 lb Constitutional: Yes: Well Nourished, Anxious, Obese Eyes: Yes: WNL HENT: Yes: WNL, Normocephalic Neck: Yes: WNL Cardiovascular: Yes: WNL, Regular Rate and Rhythm Lungs: Clear to auscultation Breast(s): Yes: WNL - Abdominal Exam/OB Fundal Height: 42 Number of Fetuses: Single Presentation: Vertex Contractions: No Monitor Mode: External Heart Rate (range): 140 Category: I Accelerations: Uniform Decelerations: None - Vaginal Exam/OB Vaginal Bleediing: No Dilatation (cm): FT Effacement (%): 50 Amniotic Membrane Status: Intact Presentation: Vertex/Position Station: -4 - Physical Exam Musculoskeletal: Yes: WNL Extremities: Yes: WNL. No: Calf Tenderness Edema: Yes Edema: LLE: 1+, RLE: 1+ Integumentary: Yes: Rash (eczematous rash, erythematous type, pronounced on her Rt upper extremity), Tattoos Deep Tendon Reflex Grade: Normal +2 Psychiatric: Yes: WNL, Alert, Oriented - Labs Lab Results: Laboratory Tests 10/18/17 10/18/17 10/18/17 17:45 17:45 17:45 WBC 8.7 Hgb 11.4 Hct 33.6 Plt Count 228 Neutrophils % 74.5 Monocytes % 8.7 PT with INR 11.30 INR 1.00 PTT (Actin FS) 32.0 Sodium 140 Potassium 3.8 Chloride 106 Anion Gap 12 BUN 8 Creatinine 0.4 L Random Glucose 75 Blood Type Antibody Screen 10/18/17 17:45 WBC Hgb Hct Plt Count Neutrophils % Monocytes % PT with INR INR PTT (Actin FS) Sodium Potassium Chloride Anion Gap BUN Creatinine Random Glucose Blood Type O NEGATIVE Antibody Screen Negative Problem List - Problems (1) Post term over 40 weeks Code(s): O48.0 - POST-TERM (2) Elective induction of labor planned Code(s): FQM2311 - (3) Obesity Code(s): E66.9 - OBESITY, UNSPECIFIED Qualifiers: Body mass index: BMI 40.0-44.9 Assessment/Plan 37 yrs AMA), , 40.3 weeks , Poor ricci score ( cx post, , 50 %, , soft, vx -4, FT) , GBS neg, sono Large baby 9'9" r/b/a of induction explained , pt refuses to wait for sp onset OF LP any longer , insists on induction of labor Plan : cervidil induction. attemt trial of vag delivery
[2017-10-18 19:34] LABS: BASO % 0.2 % (0-2.0); EOS % 1.2 % (0-4.5); HEMATOCRIT 33.6 % (32.4-45.2); HEMOGLOBIN 11.4 GM/dL (10.7-15.3); LYMPH % 15.4 % (8-40); MCH 30.6 pg (25.7-33.7); MEAN CELL VOLUME 90.1 fl (80-96); MEAN PLT VOLUME 8.8 fl (7.5-11.1); MONO % 8.7 % (3.8-10.2); NEUT % 74.5 % (42.8-82.8); PLATELET COUNT 228 K/MM3 (134-434); RBC 3.73 M/mm3 (3.60-5.2); RDW 15.1 % (11.6-15.6); WHITE BLOOD COUNT 8.7 K/mm3 (4.0-10.0)
[2017-10-18 19:56] LABS: PROTHROMBIN TIME (PATIENT) 11.3 SEC (9.98-11.88)
[2017-10-18 20:10] LABS: ANION GAP 12 (8-16); BLOOD UREA NITROGEN 8 mg/dL (7-18); CALCIUM 8.3 mg/dL (8.5-10.1); CHLORIDE 106 mmol/L (98-107); CO2 22 mmol/L (21-32); CREATININE 0.4 mg/dL (0.55-1.02); GLUCOSE,RANDOM 75 mg/dL (74-106); POTASSIUM 3.8 mmol/L (3.5-5.1); SODIUM 140 mmol/L (136-145)
[2017-10-19] MEDS ORDERED: PROMETHAZINE HCL 25 MG/1 ML VIAL IVPB ONE (02:15)
[2017-10-19] MEDS ORDERED: BUTORPHANOL TARTRATE 1 MG/ML VIAL IVPB ONE (02:15)
[2017-10-19] MEDS ORDERED: PROMETHAZINE HCL 25 MG/1 ML VIAL ONE (02:21)
[2017-10-19] MEDS ORDERED: BUTORPHANOL TARTRATE 1 MG/ML VIAL ONE ×2 (02:21)
[2017-10-19] MEDS ORDERED: ELECTROLYTE-148 SOLN 1,000 ML IV SCH (02:45)
[2017-10-19] MEDS ORDERED: CITRIC ACID/SODIUM CITRATE 30 ML UNIT-DOSE CUP PO ONE (05:16)
--- NOTE | 2017-10-19 05:24 | PN ---
Progress Note (short form) - Note Progress Note: s/p cervidil insertion at 5.17 pm on 10/18/17 pt started having UC since 6.30 pm 2-3 min & then became q1-2 min pt c/o pain 10/18/17 9.15 PM IV bolus was given , uc became infrequent 11.00 PM pt c/o pain vag exam was cx close.post, unefface, vx -4. UC 1-3 min. FHR cat-1 150 bpm pt was encouraged to ambulate 10/19/17 2.30 AM Stadol 2 mg + Phenrgan 25 mg IV stat was given 5.00 Am pt still c/o pain, , uc are infrequent FHR 150 low BTB , due to stadol. cat-1 vag exam : . No change. cx close, post , unefface, vx -4 pt refuses to continue induction process, requests for c/ section cervidil removed Selected Entries 10/19/17 04:00 Temperature 98.4 F Pulse Rate 96 H Blood Pressure 140/57 IMP : Failed Induction of labor Plan delivery by Primary c/section Problem List - Problems (1) Post term over 40 weeks Code(s): O48.0 - POST-TERM (2) Elective induction of labor planned Code(s): [id number] - (3) Obesity Code(s): E66.9 - OBESITY, UNSPECIFIED Qualifiers: Body mass index: BMI 40.0-44.9
[2017-10-19] MEDS ORDERED: OXYTOCIN 20 UNITS in 0.9% NS 20 UNIT/1,000 ML INFUS.BAG IV ONE (05:28)
[2017-10-19] MEDS ORDERED: ceFAZolin SODIUM 1 GM VIAL ONE (05:38)
[2017-10-19] MEDS ORDERED: morphine SULFATE/Preservative Free 0.5 MG/ML (1cc Syringe) ONE (05:38)
[2017-10-19] MEDS ORDERED: BUPIVACAINE 0.75% IN DEXTROSE/PF 2ML AMPULE NR ONE (05:40)
[2017-10-19] MEDS ORDERED: MIDAZOLAM HCL 2 MG/2 ML SINGLE DOSE VIAL ONE (06:57)
[2017-10-19] MEDS ORDERED: morphine SULFATE/Preservative Free 0.5 MG/ML (1cc Syringe) SPIN ONE (07:07)
[2017-10-19] MEDS ORDERED: IBUPROFEN 600 MG TABLET (FP) PO PRN (07:07)
[2017-10-19] MEDS ORDERED: ONDANSETRON 4 MG/2 ML VIAL IVPUSH PRN (07:07)
[2017-10-19] MEDS ORDERED: ACETAMINOPHEN 325 MG TABLET (FP) PO PRN (07:07)
[2017-10-19] MEDS ORDERED: METHYLERGONOVINE MALEATE 0.2 MG/1 ML AMP IM PRN (07:26)
[2017-10-19] MEDS ORDERED: OXYTOCIN 20 UNITS in 0.9% NS 20 UNIT/1,000 ML INFUS.BAG IV SCH (07:30)
[2017-10-19 07:31] LABS: ARTERIAL BLD GAS O2 SATURATION 36.4 % (90-98.9); ARTERIAL BLOOD GAS PCO2 50.2 mmHg (35-45); ARTERIAL BLOOD GAS pH 7.27 (7.35-7.45)
[2017-10-19 07:37] LABS: VENOUS PC02 54.4 mmHg (38-52); VENOUS PH 7.26 (7.32-7.42)
--- NOTE | 2017-10-19 07:41 | OP ---
Operative Note - Note: Operative Date: 10/19/17 Pre-Operative Diagnosis: 40.4 weeks, failed induction of labor , obesity Operation: primary LFTC/Section Findings: 10/19/17, Baby Boy, Vx LOT position, 8/9, WT 9'12" , Ht 21" Both tubes & ovaries normal Dr Albina Alford ,quality coordinator present in the room . both tubes & ovaries normal Surgeon: Leti Solo Engineer Gas Pumping Station: Amor Charles Anesthesiologist/PAINTER SHIPYARD: Kenny Matson Anesthesia: Spinal Specimens Removed: cord blood gas. cord blood. placenta Estimated Blood Loss (mls): 1,200 Drains, Volume Out (mls): 100 (Iv ancef 2 gmmivpb given ) Operative Report Dictated: Yes
[2017-10-19] MEDS: IBUPROFEN 800 MG/8 ML IJ IVPB PRN ×2 (08:00→21:54)
--- NOTE | 2017-10-19 08:03 | PN ---
Delivery - Delivery Section: Primary, Low Flap Transverse (Indication 40.3 weeks, Failed induction of labor , Obesity) Type of Anesthesia: Spinal Episiotomy/Laceration: None EBL (cc): 1,200 (inraop Schrader urine output 100 ml , jeff color ) Delivery, Single - Stages of Labor Date of Delivery: 10/19/17 Time of Delivery: 06:34 Time Placenta Delivered: 06:36 Placenta: Yes: Manual Removal, Uterine Exploration - Condition of Farm Field Manager/Scallop Binder Present: Yes Name: Ivis Alforddidier Infant Gender: Male Position: Left, OT (cord around neck x1) Total Hours ROM (Hrs/Mins): 2 minutes - 1 Minute Total Score: 8 5 Minutes Total Score: 9 - Burns Feeding Plan Initial Plan: Elected not to breastfeed exclusively throughout hospitalization Remarks - Remarks Remarks: 37 Yrs (AMA), , 40.3 weeks GBS neg, admitted for induction of labor on Cervidil insertion : 10/18/17 , after 12 hrs removed . No change in cervix Intraop excessive bleeding, otherwise uneventful 2 GM Iv Ancef prior to incision was given v/s stable
--- NOTE | 2017-10-19 08:34 | OP ---
DATE OF OPERATION: 10/19/2017 PREOPERATIVE DIAGNOSIS: Failed induction of labor, 40.4 weeks, obesity. OPERATION DONE: Primary low transverse section. SURGEON: Leti Solo MD DUCT LAYER SURGEON: Amor Charles MD ANESTHESIOLOGIST: Kenny Matson MD ANESTHESIA: Spinal. FINDINGS: This is a 37-year-old 4, para 2-0-1-2 who was admitted on October 18, 2017, for induction of labor. Cervidil was inserted. Mayorga score was poor , just 1. The cervix was closed, posterior, soft, and vertex was -4. After Cervidil, patient did have contractions, but there was no change in the cervix after 12 hrs of cervidil. Cervidil was removed and patient declined to continue induction process and requests for , and also estimated weight by the ultrasound was 9 pounds 9 ounces. Previously she had delivered the babies with a weight of 6 pounds 7 ounces. DESCRIPTION OF PROCEDURE: Schrader catheter was placed. Abdomen was shaved and prepped. She was taken to the operating room table. Spinal anesthesia was given. Abdomen was painted and draped in the usual manner, and then Pfannenstiel incision was made in the skin and subcutaneous tissue. Anterior rectus sheath was incised transversely. Bleeding points were clamped and cauterized. Rectus muscle was . Parietal peritoneal muscle opened vertically. Bladder peritoneum was incised transversely, and the lower uterine segment was incised transversely. Amniotic fluid was clear. Baby was delivered at 6:34 a.m. from LOT position. Cord around the neck was x1. Immediate oral and nasal suction was done. Baby was handed over to the user interface engineer. score was 8, 9. Baby's weight is 9 pounds 12 ounces, baby boy, and height was 21 inches. Cord was clamped, cut. Cord blood was collected, and then also the cord segment was sent for the cord blood gases. Placenta was removed completely with the membranes, and the uterine cavity was cleaned, then the closure of the uterine incision was done in 2 layers. First layer was a continuous locking with a Biosyn 0 suture. Second was a continuous intermittently locking with a Biosyn 0 suture, and vertical mattress sutures were taken, and the bladder peritoneum also was closed with a Biosyn 0 suture. Hemostasis was verified. Both tubes and ovaries were normal. Sponge, instrument, needle count was correct. Then the irrigation was done. Closure of the abdomen was done. Parietal peritoneum was closed with a Vicryl 0 suture. Muscles were approximated together with interrupted Vicryl 0 suture. Hemostasis was checked underneath the rectus sheath flaps, and the anterior rectus sheath was closed with 0 Vicryl continuous sutures. Hemostasis was checked in subcutaneous tissue, and subcutaneous tissue was approximated with interrupted Vicryl 0 suture. The skin was approximated with kerri and a pressure dressing was given. Blood clots were removed from the vagina. Estimated blood loss was 1200 mL, and intraoperative urine output was 100 mL. She received 2 g of IV Ancef prior to the incision. Alma [id number] MTDD
[2017-10-19] MEDS ORDERED: CEFAZOLIN 1 GM/D5W 1 GM/50 ML BAG IVPB SCH ×2 (10:00→14:00)
[2017-10-19] MEDS: CEFAZOLIN 1 GM/D5W 1 GM/50 ML BAG IVPB SCH (20:59)
[2017-10-20] MEDS: CEFAZOLIN 1 GM/D5W 1 GM/50 ML BAG IVPB SCH (06:27)
[2017-10-20] MEDS ORDERED: BISACODYL 10 MG SUPP.RECT RC PRN (07:27)
[2017-10-20] MEDS: SIMETHICONE 80 MG TAB.CHEW (FP) PO PRN ×2 (07:44→20:45)
[2017-10-20] MEDS: oxyCODONE HCL 5 MG TABLET PO PRN ×2 (07:45→20:44)
[2017-10-20] MEDS: ACETAMINOPHEN 325 MG TABLET (FP) PO PRN ×2 (07:45→12:12)
--- NOTE | 2017-10-20 08:48 | PN ---
Progress Note (short form) - Note Progress Note: POD #1 - s/p under spinal anesthesia with duramorph. Pt. doing well, sitting up comfortably in bed baby. No complaints. Good pain control. No apparent anesthetic complications noted. Continue current care.
[2017-10-20 08:51] LABS: BASO % 0.2 % (0-2.0); HEMATOCRIT 28.2 % (32.4-45.2); HEMOGLOBIN 9.4 GM/dL (10.7-15.3); LYMPH % 11.3 % (8-40); MCH 30.1 pg (25.7-33.7); MCHC 33.5 g/dl (32.0-36.0); MEAN PLT VOLUME 8.3 fl (7.5-11.1); MONO % 7.1 % (3.8-10.2); NEUT % 80.4 % (42.8-82.8); PLATELET COUNT 181 K/MM3 (134-434); RBC 3.13 M/mm3 (3.60-5.2); RDW 15.3 % (11.6-15.6); WHITE BLOOD COUNT 11.8 K/mm3 (4.0-10.0)
[2017-10-20] MEDS: FERROUS SO4 325 MG TABLET (FP) PO SCH ×2 (09:19→21:46)
[2017-10-20] MEDS: ENOXAPARIN NA (PORCINE) 40 MG/0.4 ML DISP.SYRIN SQ SCH (09:19)
[2017-10-20] MEDS: PRENATAL VITAMINS W/ FOLIC ACID TABLET (FP) PO SCH (09:19)
--- NOTE | 2017-10-20 09:24 | PN ---
Post Progress Note - Subjective Subjective: 37 yo Para 1 status post primary , seen and evaluated. Doing well. Post Day: 1 Type of Delivery: Primary C/S Vital Signs: Vital Signs Temperature 98.0 F 10/20/17 06:00 Pulse Rate 101 H 10/20/17 06:00 Respiratory Rate 20 10/20/17 06:00 Blood Pressure 121/68 10/20/17 06:00 O2 Sat by Pulse Oximetry (%) 98 10/19/17 08:30 Breast Exam: Yes: Soft Uterus: Yes: Fundus Firm Incision: Yes: Dressing dry and intact Abdomen/GI: Yes: Abdomen soft, Tolerating PO Lochia: Yes: Rubra Lochia, amount: Small Extremities: Yes: Calves non-tender Perineum: Yes: Intact Activity: Ambulating - Labs Labs: CBC WBC 11.8 K/mm3 (4.0-10.0) H D 10/20/17 07:45 RBC 3.13 M/mm3 (3.60-5.2) L 10/20/17 07:45 Hgb 9.4 GM/dL (10.7-15.3) L D 10/20/17 07:45 Hct 28.2 % (32.4-45.2) L D 10/20/17 07:45 MCV 90.0 fl (80-96) 10/20/17 07:45 MCH 30.1 pg (25.7-33.7) 10/20/17 07:45 MCHC 33.5 g/dl (32.0-36.0) 10/20/17 07:45 RDW 15.3 % (11.6-15.6) 10/20/17 07:45 Plt Count 181 K/MM3 (134-434) D 10/20/17 07:45 MPV 8.3 fl (7.5-11.1) 10/20/17 07:45 Neutrophils % 80.4 % (42.8-82.8) 10/20/17 07:45 Lymphocytes % 11.3 % (8-40) D 10/20/17 07:45 Monocytes % 7.1 % (3.8-10.2) 10/20/17 07:45 Eosinophils % 1.0 % (0-4.5) 10/20/17 07:45 Basophils % 0.2 % (0-2.0) 10/20/17 07:45 Problem List - Problems (1) Status post primary low transverse section Code(s): Z98.891 - HISTORY OF UTERINE SCAR FROM PREVIOUS SURGERY Assessment/Plan Status post primary Stable Ambulation Analgesia as needed Continue routine post op care
[2017-10-20] MEDS: IBUPROFEN 600 MG TABLET (FP) PO PRN ×2 (12:14→20:43)
--- NOTE | 2017-10-20 14:23 | PATH ---
Surgical Pathology Report Patient Name: PARAM MARTINI [facility]. Rec. 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 Specimen(s) Received PLACENTA Clinical History , x2, Rh-, eczema Final Diagnosis PLACENTA, SECTION: 650 g THIRD TRIMESTER PLACENTA WITH TRIVASCULAR UMBILICAL CORD AND UNREMARKABLE PLACENTAL MEMBRANES. Electronically Signed Angélica Fletcher M.D. Gross Description The specimen is received fresh labeled placenta and is a 650 gram, 21 x 16 x 2cm. placenta with attached membranes and umbilical cord. The attached membranes are nazario translucent and insert marginally. The umbilical cord measures 17 cm. in length and averages 1.2 cm. in diameter. The cord inserts eccentrically, 7 cm. to the nearest margin. No true knots or strictures are identified. Cut surface of the umbilical cord reveals 3 vessels. The surface is burgess blue with minimal fibrin deposition and appropriate caliber vessels .The maternal surface is red-brown with focal defects. Sectioning reveals red-brown, spongy parenchyma. No lesions are identified. Regulatory Leader sections are submitted in three cassettes as follows: 1- membrane rolls and umbilical cord; 2-3- full thickness sections of placenta. TRISH/10/19/2017 tayo/10/19/2017
[2017-10-20] MEDS: SENNOSIDES/DOCUSATE COMBO (SENNA PLUS) TABLET (UD) PO PRN (20:42)
[2017-10-21] MEDS: oxyCODONE HCL 5 MG TABLET PO PRN (07:44)
[2017-10-21] MEDS: SIMETHICONE 80 MG TAB.CHEW (FP) PO PRN ×2 (07:44→17:42)
[2017-10-21] MEDS: IBUPROFEN 600 MG TABLET (FP) PO PRN ×2 (07:45→17:40)
--- NOTE | 2017-10-21 07:59 | PN ---
Post Progress Note - Subjective Subjective: c/o pain at op site scale 5-6/10 no c/o dizziness Post Day: 2 Type of Delivery: Primary C/S Vital Signs: Vital Signs Temperature 99.3 F 10/20/17 21:05 Pulse Rate 90 10/20/17 21:05 Respiratory Rate 20 10/20/17 21:05 Blood Pressure 113/65 10/20/17 21:05 O2 Sat by Pulse Oximetry (%) 99 10/20/17 22:00 Breast Exam: Yes: Soft. No: Engorged Uterus: Yes: Fundus Firm, Fundus below umbilicus, Non-tender Incision: Yes: Athena intact. No: Redness, Oozing Abdomen/GI: Yes: Abdomen soft, Passing flatus, Tolerating PO (diet ). No: Abdominal Distention, Tender Lochia, amount: Moderate Extremities: Yes: Calves non-tender, Edema Perineum: Yes: Intact Activity: Ambulating - Labs Labs: CBC WBC 11.8 K/mm3 (4.0-10.0) H D 10/20/17 07:45 RBC 3.13 M/mm3 (3.60-5.2) L 10/20/17 07:45 Hgb 9.4 GM/dL (10.7-15.3) L D 10/20/17 07:45 Hct 28.2 % (32.4-45.2) L D 10/20/17 07:45 MCV 90.0 fl (80-96) 10/20/17 07:45 MCH 30.1 pg (25.7-33.7) 10/20/17 07:45 MCHC 33.5 g/dl (32.0-36.0) 10/20/17 07:45 RDW 15.3 % (11.6-15.6) 10/20/17 07:45 Plt Count 181 K/MM3 (134-434) D 10/20/17 07:45 MPV 8.3 fl (7.5-11.1) 10/20/17 07:45 Neutrophils % 80.4 % (42.8-82.8) 10/20/17 07:45 Lymphocytes % 11.3 % (8-40) D 10/20/17 07:45 Monocytes % 7.1 % (3.8-10.2) 10/20/17 07:45 Eosinophils % 1.0 % (0-4.5) 10/20/17 07:45 Basophils % 0.2 % (0-2.0) 10/20/17 07:45 Problem List - Problems (1) Post term over 40 weeks Code(s): O48.0 - POST-TERM (2) Elective induction of labor planned Code(s): [id number] - (3) Obesity Code(s): E66.9 - OBESITY, UNSPECIFIED Qualifiers: Body mass index: BMI 40.0-44.9 (4) Failed induction of labor Code(s): O61.9 - FAILED INDUCTION OF LABOR, UNSPECIFIED (5) delivery due to maternal disorder, delivered, curr hospitaliz Code(s): O82 - ENCOUNTER FOR DELIVERY WITHOUT INDICATION; O99.89 - OTH DISEASES AND CONDITIONS COMPL PREG/CHLDBRTH (6) Anemia Code(s): D64.9 - ANEMIA, UNSPECIFIED Qualifiers: Other causes of anemia: acute posthemorrhagic Assessment/Plan stable plan ct po care anemia counselled
[2017-10-21] MEDS: ENOXAPARIN NA (PORCINE) 40 MG/0.4 ML DISP.SYRIN SQ SCH (09:44)
[2017-10-21] MEDS: PRENATAL VITAMINS W/ FOLIC ACID TABLET (FP) PO SCH (09:44)
[2017-10-21] MEDS: FERROUS SO4 325 MG TABLET (FP) PO SCH ×2 (09:44→21:46)
[2017-10-21] MEDS: ACETAMINOPHEN 325 MG TABLET (FP) PO PRN (17:41)
[2017-10-22] MEDS: ACETAMINOPHEN 325 MG TABLET (FP) PO PRN (08:18)
[2017-10-22] MEDS: SIMETHICONE 80 MG TAB.CHEW (FP) PO PRN (08:18)
[2017-10-22] MEDS: oxyCODONE HCL 5 MG TABLET PO PRN (08:20)
[2017-10-22 08:35] LABS: BASO % 0.5 % (0-2.0); EOS % 2.6 % (0-4.5); HEMOGLOBIN 10.1 GM/dL (10.7-15.3); LYMPH % 22.5 % (8-40); MCH 30.1 pg (25.7-33.7); MCHC 33.7 g/dl (32.0-36.0); MEAN CELL VOLUME 89.4 fl (80-96); MEAN PLT VOLUME 7.8 fl (7.5-11.1); MONO % 8.5 % (3.8-10.2); NEUT % 65.9 % (42.8-82.8); PLATELET COUNT 248 K/MM3 (134-434); RBC 3.35 M/mm3 (3.60-5.2); RDW 15.6 % (11.6-15.6); WHITE BLOOD COUNT 7.8 K/mm3 (4.0-10.0)
[2017-10-22] MEDS: FERROUS SO4 325 MG TABLET (FP) PO SCH ×2 (10:00→21:21)
[2017-10-22] MEDS: PRENATAL VITAMINS W/ FOLIC ACID TABLET (FP) PO SCH (10:01)
[2017-10-22] MEDS: ENOXAPARIN NA (PORCINE) 40 MG/0.4 ML DISP.SYRIN SQ SCH (10:01)
--- NOTE | 2017-10-22 10:21 | PN ---
Post Progress Note - Subjective Subjective: Pt c/o feeling very dizzy. Was standing up and thought she was going to faint. Still feels slightly lightheaded. Says it happened shortly after getting 2 oxycodone. Also reports that she has no been sleeping well. Otherwise doing well. +OOB. tolerating diet. +flatus. Post Day: 3 Type of Delivery: Primary C/S Vital Signs: Vital Signs Temperature 98.3 F 10/22/17 09:08 Pulse Rate 80 10/22/17 09:08 Respiratory Rate 20 10/22/17 09:08 Blood Pressure 138/79 10/22/17 09:08 O2 Sat by Pulse Oximetry (%) 99 10/20/17 22:00 Breast Exam: Yes: Soft Uterus: Yes: Fundus Firm Incision: Yes: Antoni intact Abdomen/GI: Yes: Abdomen soft Lochia: Yes: Rubra Lochia, amount: Small Extremities: Yes: Calves non-tender Activity: Ambulating - Labs Labs: CBC WBC 7.8 K/mm3 (4.0-10.0) D 10/22/17 07:45 RBC 3.35 M/mm3 (3.60-5.2) L 10/22/17 07:45 Hgb 10.1 GM/dL (10.7-15.3) L 10/22/17 07:45 Hct 30.0 % (32.4-45.2) L 10/22/17 07:45 MCV 89.4 fl (80-96) 10/22/17 07:45 MCH 30.1 pg (25.7-33.7) 10/22/17 07:45 MCHC 33.7 g/dl (32.0-36.0) 10/22/17 07:45 RDW 15.6 % (11.6-15.6) 10/22/17 07:45 Plt Count 248 K/MM3 (134-434) D 10/22/17 07:45 MPV 7.8 fl (7.5-11.1) 10/22/17 07:45 Neutrophils % 65.9 % (42.8-82.8) 10/22/17 07:45 Lymphocytes % 22.5 % (8-40) D 10/22/17 07:45 Monocytes % 8.5 % (3.8-10.2) 10/22/17 07:45 Eosinophils % 2.6 % (0-4.5) D 10/22/17 07:45 Basophils % 0.5 % (0-2.0) 10/22/17 07:45 Problem List - Problems (1) delivery due to maternal disorder, delivered, curr hospitaliz Assessment/Plan: Pt POD #3 s/p primary c/s continue postop care monitor vital signs; repeat cbc this morning stable. If symptoms persist will reassess close observation Dr. Giles Code(s): O82 - ENCOUNTER FOR DELIVERY WITHOUT INDICATION; O99.89 - OTH DISEASES AND CONDITIONS COMPL PREG/CHLDBRTH
[2017-10-22] MEDS: SENNOSIDES/DOCUSATE COMBO (SENNA PLUS) TABLET (UD) PO PRN (21:21)
[2017-10-23] MEDS: IBUPROFEN 600 MG TABLET (FP) PO PRN (04:53)
[2017-10-23] MEDS: SIMETHICONE 80 MG TAB.CHEW (FP) PO PRN (04:53)
[2017-10-23] MEDS: ACETAMINOPHEN 325 MG TABLET (FP) PO PRN (04:54)
--- NOTE | 2017-10-23 07:28 | DS ---
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 Vital Signs: Vital Signs Temperature 98.7 F 10/22/17 21:27 Pulse Rate 86 10/22/17 21:27 Respiratory Rate 20 10/22/17 21:27 Blood Pressure 133/77 10/22/17 21:27 O2 Sat by Pulse Oximetry (%) 99 10/20/17 22:00 Constitutional: Yes: Well Nourished Eyes: Yes: Conjunctiva Clear HENT: Yes: Atraumatic Neck: Yes: Supple Cardiovascular: Yes: Regular Rate and Rhythm Respiratory: Yes: Regular Gastrointestinal: Yes: Normal Bowel Sounds External Genitalia: Yes: Normal Vaginal Exam: Yes: Normal Cervix: Yes: Normal Uterus: Yes: Firm ....Post : Yes: Uterus firm Breast(s): Yes: WNL Neurological: Yes: Alert, Oriented ...Motor Strength: WNL Psychiatric: Yes: Alert, Oriented Labs: CBC, BMP 10/22/17 07:45 10/18/17 17:45 Delivery - Delivery Section: Primary, Low Flap Transverse (Indication 40.3 weeks, Failed induction of labor , Obesity) Type of Anesthesia: Spinal Episiotomy/Laceration: None EBL (cc): 1,200 (inraop Schrader urine output 100 ml , jeff color ) Delivery, Single - Stages of Labor Date of Delivery: 10/19/17 Time of Delivery: 06:34 Time Placenta Delivered: 06:36 Placenta: Yes: Manual Removal, Uterine Exploration - 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 Present: Yes Name: Albina Alford Infant Gender: Male Weight: 9 lb 12 oz Position: Left, OT (cord around neck x1) Total Hours ROM (Hrs/Mins): 2 minutes - 1 Minute Total Score: 8 5 Minutes Total Score: 9 - [place] Feeding Plan Initial Plan: Elected not to breastfeed exclusively throughout hospitalization Discharge Summary Reason For Visit: INDUCTION OF LABOR Current Active Problems Anemia (Acute) delivery due to maternal disorder, delivered, curr hospitaliz (Acute) Elective induction of labor planned (Acute) Failed induction of labor (Acute) Obesity (Acute) Post term over 40 weeks (Acute) Status post primary low transverse section (Acute) Procedures: Principal: Primary Low Transverse Hospital Course: Routine Post op care Condition: Stable - Instructions Diet, Activity, Other Instructions: Post Instructions DIET: Continue good diet high in protein, calcium, and iron rich foods. Drink at least eight (8) glasses of water daily in addition to other fluids. ___ Regular diet MEDICATIONS: Continue vitamins and iron as previously directed. Motrin and Tylenol may be taken for minor discomfort. ACTIVITY: Mild to moderate exercise may be started in two (2) weeks. Take frequent rest periods. Resume normal activity after six (6) week check up. WOUND CARE OF OPERATIVE SITE: Continue use of perineal bottle until vaginal discharge stops. Keep area clean. Shower daily. Keep abdominal wound dry. Report any drainage or redness to physician. Tub baths, tampons and douches are not permitted for [address] Breast feeding & or Bottle feeding BREAST CARE: (For those that are not breast feeding): If engorgement occurs: Wear tight fitting bra. Take Tylenol or Motrin for pain. Apply cold packs (ice in bags to each breast ) FAMILY PLANNING: There are many control alternatives to pursue and they should be discussed at your first office visit. You may resume sexual activity after your six (6) week check up. (Remember, breast feeding is not a contraceptive) NEXT PHYSICIAN APPOINTMENT: Be certain to call for a one (1) week appointment, unless otherwise directed. Tuesday , for kerri removal 10/25/17 Call Clinic or got to Emergency Dept if you have any of the following: Heavy vaginal bleeding Painful urination Leg pain Unusual odor noted to vaginal bleeding High fever Red streaking noted on breast Referrals: Leti Solo MD [Staff Physician] - Disposition: HOME - Home Medications Comprehensive Discharge Medication List: Ambulatory Orders Hydrocortisone 0.5% Cream [Hytone 0.5% Cream -] 1 applic TP PRN PRN 10/18/17 Vitamins (Sjr) - 1 tab PO DAILY 10/18/17 Acetaminophen [Tylenol .Regular Strength -] 500 mg PO Q4H PRN #30 tablet Ferrous Sulfate [Feosol] 325 mg PO BID #60 tab 10/21/17 Ibuprofen [Motrin -] 600 mg PO Q4H PRN #30 tablet 10/21/17 Vitamins (Sjr) - 1 tab PO DAILY #30 tablet 10/21/17
[2017-10-23 08:04] VITALS: BP 134/85; PULSE 81; TEMP 98.2
[2017-10-23] MEDS: PRENATAL VITAMINS W/ FOLIC ACID TABLET (FP) PO SCH (09:22)
[2017-10-23] MEDS: FERROUS SO4 325 MG TABLET (FP) PO SCH (09:23)
[2017-10-23] MEDS: ENOXAPARIN NA (PORCINE) 40 MG/0.4 ML DISP.SYRIN SQ SCH (09:23)
--- NOTE | 2017-10-23 10:13 | PN ---
Progress Note (short form) - Note Progress Note: Selected Entries 10/23/17 08:00 Temperature 98.2 F Pulse Rate 81 Blood Pressure 134/85 Laboratory Tests 10/22/17 07:45 WBC 7.8 D Hgb 10.1 L MCHC 33.7 Plt Count 248 D pod #4. post c/section asymptomatic afebrile kerri removed , wound healing satisfactory . wound edges well approximated , no oozing . steri strips applied plan discharge today Problem List - Problems (1) Post term over 40 weeks Code(s): O48.0 - POST-TERM (2) Elective induction of labor planned Code(s): FMT4394 - (3) Obesity Code(s): E66.9 - OBESITY, UNSPECIFIED Qualifiers: Body mass index: BMI 40.0-44.9 (4) Failed induction of labor Code(s): O61.9 - FAILED INDUCTION OF LABOR, UNSPECIFIED (5) delivery due to maternal disorder, delivered, curr hospitaliz Code(s): O82 - ENCOUNTER FOR DELIVERY WITHOUT INDICATION; O99.89 - OTH DISEASES AND CONDITIONS COMPL PREG/CHLDBRTH (6) Anemia Code(s): D64.9 - ANEMIA, UNSPECIFIED Qualifiers: Other causes of anemia: acute posthemorrhagic
== END 2017-10-23 12:45 | disposition home or self-care (01) | DRG 540 ==
LOC: JLDR 15:30 → J3W 10-19 08:55
PROVIDERS: ADMIT Obstetrics & Gynecology; ATTEND Obstetrics & Gynecology
PROC: 3E0P7VZ Introduction of Hormone into Female Reproductive, Via Natural or Artificial Opening (ICD-10-PCS; 2017-10-18)
PROC: 10D00Z1 Extraction of Products of Conception, Low, Open Approach (ICD-10-PCS; principal; 2017-10-19)
DX: O48.0 Post-term pregnancy (principal); O62.0 Primary inadequate contractions; O99.214 Obesity complicating childbirth; E66.8 Other obesity; Z68.41 Body mass index [BMI] 40.0-44.9, adult; Z37.0 Single live birth; Z3A.40 40 weeks gestation of pregnancy
CPT/HCPCS: 36415; 36600; 80048; 82803; 85025; 85610; 85730; 86593; 86850; 86900; 86901; 88307-TC; 94010

== ENCOUNTER 2023-08-18 09:45 | Emergency (ER) | payer OTHER ==
[2023-08-18 09:52] VITALS: BP 129/78; PULSE 94; TEMP 98.5; BMI 36.2
[2023-08-18] MEDS ORDERED: DEXAMETHASONE SOD PHOSPHATE 10 MG/1 ML VIAL IM ONE (11:57)
[2023-08-18] MEDS ORDERED: DEXAMETHASONE SOD PHOSPHATE 10 MG/1 ML VIAL ONE (12:40)
[2023-08-18 12:52] LABS: BASO % 0.6 % (0-2.0); EOS % 1.5 % (0-4.5); HEMATOCRIT 38.2 % (32.4-45.2); HEMOGLOBIN 12.7 GM/dL (10.7-15.3); LYMPH % 26.1 % (8-40); MCH 26.7 pg (25.7-33.7); MCHC 33.2 g/dl (32.0-36.0); MEAN CELL VOLUME 80.4 fl (80-96); MONO % 7.7 % (3.8-10.2); NEUT % 64.1 % (42.8-82.8); PLATELET COUNT 363 10^3/uL (134-434); RBC 4.75 M/mm3 (3.60-5.2); RDW 14.2 % (11.6-15.6); WHITE BLOOD COUNT 8.9 K/mm3 (4.0-10.0)
[2023-08-18 12:52] LABS: PH,URINE 5.5 (5.0-8.0); URINE APPEARANCE CLOUDY; URINE BILIRUBIN NEGATIVE (NEGATIVE); URINE COLOR YELLOW; URINE GLUCOSE (UA) NEGATIVE (NEGATIVE); URINE KETONE TRACE (NEGATIVE); URINE LEUK ESTERASE NEGATIVE (NEGATIVE); URINE NITRITE NEGATIVE (NEGATIVE); URINE PROTEIN NEGATIVE (NEGATIVE); URINE UROBILINOGEN 0.2 mg/dL (0.2-1.0)
[2023-08-18 13:21] LABS: POTASSIUM 4.1 mmol/L (3.5-5.1)
[2023-08-18 13:24] LABS: ALBUMIN 3.5 g/dl (3.4-5.0); CALCIUM 9.2 mg/dL (8.5-10.1)
[2023-08-18 13:28] LABS: CREATININE 0.8 mg/dL (0.55-1.3)
[2023-08-18 13:29] LABS: BILIRUBIN,TOTAL 0.4 mg/dL (0.2-1); TOT PROT 7.5 g/dl (6.4-8.2)
[2023-08-18 14:33] VITALS: RESP 14
== END 2023-08-18 16:21 | disposition home or self-care (01) ==
LOC: JER 09:45
PROC: 3E023GC Introduction of Other Therapeutic Substance into Muscle, Percutaneous Approach (ICD-10-PCS; principal; 2023-08-18)
DX: M54.42 Lumbago with sciatica, left side (principal); R20.0 Anesthesia of skin
CPT/HCPCS: 36415; 72131-TC; 80053; 81003; 84703; 85025; 93005; 93010; 99285-25; J1100